=== PATIENT | female | born 1980 | race Caucasian/White ===

== ENCOUNTER 2020-11-13 13:23 | Emergency (ER) | payer BC ==
[~2020-11-13] VITALS: Ht 165.1 cm; Wt 57.8 kg
[2020-11-13 13:34] VITALS: BP 152/103
--- NOTE | 2020-11-13 13:42 | PHYS DOC ---
Past History Past Surgical History: Appendectomy, Hip Replacement, Other Additional Past Surgical Histo: right hip Alcohol Use: Rarely Adult General Chief Complaint Chief Complaint: HAND PROBLEM HPI HPI Patient is a 40-year-old female presenting for right hand pain. Reports she was getting out of her car when she forgot her fine inside the car and attempted to reach and grab it but her SUV door slammed on her hand. Review of Systems Review of Systems Fourteen body systems of review of systems have been reviewed. See HPI for pertinent positives and negative responses, other hanna all other systems are negative, non-pertinent or non-contributory Allergies Allergies Allergies Coded Allergies Type Severity Reaction Last Updated Verified Penicillins Allergy Unknown 11/13/20 Yes Physical Exam Physical Exam Constitutional: Well developed, well nourished, no acute distress, non-toxic appearance. HENT: Normocephalic, atraumatic, bilateral external ears normal, oropharynx moist, no oral exudates, nose normal. Eyes: PERRLA, EOMI, conjunctiva normal, no discharge. Neck: Normal range of motion, no tenderness, supple, no stridor. Cardiovascular: Heart rate regular per monitor Lungs & Thorax: No respiratory distress or accessory muscle use, bilateral chest rise Abdomen: Abdomen soft, non-tender, bowel sounds present in all quadrants, no guarding or rebound, nonacute abdomen. Skin: Warm, dry, no erythema, no rash. Back: No tenderness, no CVA tenderness. 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 Psychologic: Affect normal, judgement normal, mood normal. Current Patient Data Vital Signs Vital Signs Date Time Temp Pulse Resp B/P (MAP) Pulse Ox O2 Delivery O2 Flow Rate FiO2 11/13/20 13:34 98.3 90 16 152/103 99 Room Air EKG EKG [] Radiology/Procedures Radiology/Procedures EXAMINATION: Right hand radiograph. VIEWS: 3 COMPARISON: None INDICATION:40 years, Female, pain, status post trauma FINDINGS: No acute fracture, dislocation or subluxation. No bone erosion or periosteal reaction. No soft tissue swelling. IMPRESSION: No acute osseous process. Electronically signed by: Michael Orellana MD (11/13/2020 2:15 PM) [facility] Heart Score C/O Chest Pain: No Risk Factors: Risk Factors: DM, Current or recent (<one month) smoker, HTN, HLP, family history of CAD, obesity. Risk Scores: Risk Factors: DM, Current or recent (<one month) smoker, HTN, HLP, family history of CAD, obesity. Course & Med Decision Making Course & Med Decision Making ABCs unremarkable. I disclosed entirety of ER findings and discussed most likely diagnosis of hand contusion. Other diagnoses were discussed with patient such as fracture or dislocation but all deemed less likely causes of patient's presentation. Plan of care discussed at length with need for close outpatient follow-up to review today's ER visit stressed. Strict return precautions were also discussed at length with good understanding by patient. Patient voiced understanding and agreement with the plan. Patient knows to come back for repeat evaluation if concerning signs or symptoms present prior to outpatient follow- up. Hemodynamically stable, ambulatory and well-appearing at time of disposition. Dragon Disclaimer Dragon Disclaimer This electronic medical record was generated, in whole or in part, using a voice recognition dictation system. Departure Departure: Impression: Primary Impression: Contusion of hand, right Disposition: HOME / SELF CARE / HOMELESS Condition: STABLE Referrals: MARIA GUADALUPE SAUCEDA MD (PCP) Patient Instructions: Hand Contusion Additional Instructions: You were seen for contusion to your right hand. Your pain is most likely due to a m bone contusion that should improve with ice, continued pain medication, stretching, and activity. Do not drink, drive, or do anything important while taking prescribed pain medication because it can make you sleepy. If it does not improve you should follow up with a primary care doctor. You should return to the ED if you develop worsening pain, fever, numbness, tingling, weakness, or any other new or concerning symptoms. Scripts Hydrocodone Bit/Acetaminophen (HYDROCODONE-APAP 7.5-325 ) 1 Each Tablet 1 TAB PO PRN Q6HRS PRN for PAIN, #10 TAB 0 Refills Prov: SEKOU MORA DO 11/13/20 SEKOU MORA DO Nov 13, 2020 13:42
[2020-11-13] MEDS ORDERED: HYDROcodone/APAP 7.5/325MG 1 TAB TABLET PO ONE (14:00)
--- NOTE | 2020-11-13 14:17 | RAD ---
EXAMINATION: Right hand radiograph. VIEWS: 3 COMPARISON: None INDICATION:40 years, Female, pain, status post trauma FINDINGS: No acute fracture, dislocation or subluxation. No bone erosion or periosteal reaction. No soft tissue swelling. IMPRESSION: No acute osseous process. Electronically signed by: Michael Orellana MD (11/13/2020 2:15 PM) [facility]
[2020-11-13] MEDS ORDERED: HYDR-2765 PO (14:44)
== END 2020-11-13 15:09 | disposition home or self-care (01) ==
LOC: ER 13:23
DX: S60.221A Contusion of right hand, initial encounter (principal); Z88.0 Allergy status to penicillin; W22.8XXA Striking against or struck by other objects, initial encounter; Y93.89 Activity, other specified; Y92.89 Other specified places as the place of occurrence of the external cause; Y99.8 Other external cause status
CPT/HCPCS: 73130; 99283